=== PATIENT | male | born 1970 | race Caucasian/White ===

== ENCOUNTER → 2017-06-11 | Outpatient (CLI) | payer BC ==
[~2017-06-11] MED LIST: NILO200C2 PO
--- NOTE | 2017-06-11 15:46 | ECHOCARDIOGRAM REPORT ---
*NOTICE TO RECEIVING LIBERTARIAN AGENCY This information is strictly Confidential and protected under [place] law. [place] law prohibits you from making any further disclosure of this information unless further disclosure is expressly permitted by the written consent of the person to whom it pertains or is authorized by law. A general authorization for the release of medical or other information is not sufficient for this purpose. Hospital accepts no responsibility if the information is made available to any other person, INCLUDING THE PATIENT. Interpretation Summary * Name: HEATH SEVILLA Study Date: 06/11/2017 01:02 PM BP: 152/72 mmHg * Patient Location: [facility] HR: 70 * : 1970 (M/d/yyyy) Gender: Male Height: 72 in * Age: 46 yrs Ethnicity: CA Weight: 201 lb * Ordering Physician: Brandon Rosado * Referring Physician: Brandon Rosado D.O. * Performed By: Tiffanie Heller RDCS * * Reason For Study: Neoplasm * BSA: 2.1 m2 * Normal biventricular systolic function. * Normal chamber dimensions. * Trace mitral,tricuspid,and pulmonic regurgitation. Procedure Details * A complete two-dimensional transthoracic echocardiogram was performed (2D, M-mode, Doppler and color flow Doppler). Left Ventricle * The left ventricle is normal in size. * There is normal left ventricular wall thickness. * Ejection Fraction = 60-65%. * Left ventricular systolic function is normal. * The left ventricular wall motion is normal. Right Ventricle * The right ventricle is normal in size and function. * The right ventricular systolic function is normal as assessed by tricuspid annular plane systolic excursion (TAPSE) (normal >1.5 cm). Atria * The left atrial size is normal. * Right atrial size is normal. * No ASD detected; PFO is not assessed. Mitral Valve * The mitral valve is normal. * There is no mitral valve stenosis. * There is trace mitral regurgitation. Tricuspid Valve * The tricuspid valve is normal. * There is no tricuspid stenosis. * There is trace tricuspid regurgitation. * Right ventricular systolic pressure is normal. Aortic Valve * The aortic valve is trileaflet. * The aortic valve opens well. * No aortic regurgitation is present. Pulmonic Valve * The pulmonic valve is not well seen, but is grossly normal. * There is no pulmonic valvular stenosis. * Trace pulmonic valvular regurgitation. Great Vessels * The aortic root is normal size. * Normal inferior vena cava diameter and respiratory variation suggests normal central venous pressure. MMode 2D Measurements and Calculations IVSd 0.99 cm IVSs 1.3 cm LVIDd 4.8 cm LVIDs 2.8 cm LVPWd 0.86 cm LVPWs 1.5 cm IVS/LVPW 1.1 FS 42.4 % EDV(Teich) 108.8 ml ESV(Teich) 28.9 ml EF(Teich) 73.4 % EDV(cubed) 112.2 ml ESV(cubed) 21.4 ml EF(cubed) 80.9 % % IVS thick 30.9 % % LVPW thick 78.0 % LV mass(C)d 154.5 grams LV mass(C)dI 72.4 grams/m\S\2 LV mass(C)s 129.3 grams LV mass(C)sI 60.6 grams/m\S\2 SV(Teich) 79.8 ml SI(Teich) 37.4 ml/m\S\2 SV(cubed) 90.8 ml SI(cubed) 42.5 ml/m\S\2 Ao root diam 2.6 cm Ao root area 5.2 cm\S\2 ACS 2.1 cm LA dimension 3.2 cm LA/Ao 1.3 LVOT diam 2.0 cm LVOT area 3.0 cm\S\2 EDV(MOD-sp4) 110.0 ml ESV(MOD-sp4) 49.0 ml EF(MOD-sp4) 55.5 % EDV(MOD-sp2) 117.5 ml ESV(MOD-sp2) 44.0 ml EF(MOD-sp2) 62.6 % SV(MOD-sp4) 61.0 ml SI(MOD-sp4) 28.6 ml/m\S\2 SV(MOD-sp2) 73.5 ml SI(MOD-sp2) 34.4 ml/m\S\2 Doppler Measurements and Calculations MV E max lnida 79.3 cm/sec MV A max linda 52.8 cm/sec MV E/A 1.5 MV dec time 0.20 sec Ao V2 max 163.1 cm/sec Ao max PG 10.7 mmHg Ao max PG (full) 2.7 mmHg ARCHANA(V,A) 2.6 cm\S\2 ARCHANA(V,D) 2.6 cm\S\2 LV V1 max PG 7.9 mmHg LV V1 max 140.9 cm/sec PA V2 max 136.3 cm/sec PA max PG 7.4 mmHg TR max linda 163.1 cm/sec
== END | disposition home or self-care (01) ==
LOC: C.CPL 12:57
PROVIDERS: ATTEND Internal Medicine Hematology & Oncology
DX: C92.10 Chronic myeloid leukemia, BCR/ABL-positive, not having achieved remission (principal)